=== PATIENT | male | born 1945 | race Caucasian/White ===

== ENCOUNTER 2017-03-15 21:11 | Emergency (ER) | payer OTHER ==
[~2017-03-15] VITALS: Ht 182.9 cm; Wt 87.4 kg
[2017-03-15] MEDS ORDERED: METH500T35 PO (21:50)
[2017-03-15] MEDS ORDERED: APIX5TAB PO (21:50)
[2017-03-15] MEDS ORDERED: PANT40TA3 PO (21:50)
[2017-03-15] MEDS ORDERED: METF500T4 PO (21:50)
[2017-03-15] MEDS ORDERED: ATOR80TA PO (21:50)
[2017-03-15] MEDS ORDERED: VENL150T PO (21:50)
[2017-03-15] MEDS ORDERED: NF-LISIN40 PO (21:50)
[2017-03-15] MEDS ORDERED: SPRN25T PO (21:50)
[2017-03-15] MEDS ORDERED: TRM50T PO (21:52)
[2017-03-15] MEDS ORDERED: CYAN500T44 PO (21:55)
[2017-03-15] MEDS ORDERED: CETI10CA PO (21:55)
[2017-03-15] MEDS ORDERED: FERR160T5 PO (21:55)
[2017-03-15] MEDS ORDERED: METO-274 PO (22:02)
--- NOTE | 2017-03-15 22:07 | NUR ---
On Neurological assessment patient not able to [employer] my hand d/t injury to wrist and hand from fall.
[2017-03-15 22:17] LABS: MEAN PLATELET VOLUME 9.8 FL (6.0-9.5); PLATELET COUNT 315 10^3uL (150-450); WHITE BLOOD COUNT 6.81 10^3uL (4.0-11.0)
[2017-03-15 22:19] LABS: MEAN CORPUSCULAR HEMOGLOBIN 21.7 PG (26.0-34.0); MEAN CORPUSCULAR HGB CONC 30.4 g/dL (31.0-37.0); MEAN CORPUSCULAR VOLUME 71 FL (80-100)
[2017-03-15 22:25] LABS: ALBUMIN 3.9 g/dL (3.4-5.0); ANION GAP 17.8 MEQ/L (3-15); CALCULATED IONIZED CALCIUM 3.8 mg/dL (3.8-4.6); TOTAL PROTEIN 7.3 g/dL (6.4-8.5)
[2017-03-15 22:53] LABS: BILIRUBIN,URINE Negative (Negative); CLARITY,URINE Clear; COLOR,URINE Yellow; GLUCOSE, URINE (UA) Negative (Negative); LEUKOCYTE ESTERASE ,URINE Negative (Negative)
[2017-03-15 22:55] LABS: BAND NEUTROPHILS % 0 % (0-6); EOSINOPHILS % 0 % (0-4); LYMPHOCYTES # 1.7 #; MONOCYTES # 0.1 #; MONOCYTES % 2 % (3-11); SEGMENTED NEUTROPHILS % 73 % (51-67); TOTAL CELLS COUNTED 100
[2017-03-15 22:56] LABS: ANISOCYTOSIS MODERATE; HYPOCHROMASIA MODERATE; MICROCYTOSIS MARKED; POIKILOCYTOSIS MARKED; RBC MORPH SEE REFERENCE (NORMAL)
[2017-03-15 23:05] LABS: RBC,URINE 0-2 /HPF; URINE CENTRIFUGED VOLUME 12 mL
[2017-03-15] MEDS ORDERED: ACETAMINOPHEN 500 MG TAB (TYLENOL) PO ONE (23:55)
[2017-03-15] MEDS ORDERED: HYDROmorphone 1 MG/ML (DILAUDID) SYRINGE IV ONE (23:55)
[2017-03-15] MEDS ORDERED: FUROSEMIDE 20 MG/2 ML (LASIX) VIAL IV ONE (23:55)
[2017-03-15] MEDS ORDERED: diphenhydrAMINE 50 MG/ML INJ (BENADRYL) IV ONE (23:55)
[2017-03-15] MEDS ORDERED: ONDANSETRON 2 MG/ML (Z0FRAN) 2 ML VIAL IV ONE (23:55)
[2017-03-16] MEDS ORDERED: SODIUM CHLORIDE 250 ML IV SCH (00:40)
--- NOTE | 2017-03-16 00:44 | NUR ---
Applied 2L/NC of 02 d/t sats keep dropping to 89%, then wakes patient up and goes up to 91%. Patient was givne Dilaudid IV for pain before this. at bedside, patient resp. even and non-labored, reports pain is getting better.
[2017-03-16] MEDS ORDERED: SODIUM CHLORIDE FLUSH 3 ML SYR IV ONE (00:50)
[2017-03-16] MEDS ORDERED: ACETAMINOPHEN 500 MG TAB (TYLENOL) ONE (01:22)
[2017-03-16] MEDS ORDERED: diphenhydrAMINE 50 MG/ML INJ (BENADRYL) ONE (01:22)
[2017-03-16] MEDS: SODIUM CHLORIDE FLUSH 10 ML SYR IV PRN ×2 (01:27→03:59)
--- NOTE | 2017-03-16 02:34 | NUR ---
REPORTED TO DR. REINA REGARDING DECREASIN IN PATIENT'S BLOOD PRESSURE. PATIENTT'S REPORTS IT ISN'T UNUSUAL TO SEE IN IN THE LOW 90'S SYSTOLIC. PATIENT HAS BEEN SLEEPING, AND SNORING. DR. REINA OKAY WITH CONTINUING BLOOD ADMINISTRATION. INCREASED TO 150ML/HR AT THIS TIME.
--- NOTE | 2017-03-16 03:07 | NUR ---
Patient resting quietly with eyes closed. Denies any changes in breathing or problems with transfusion. Increased to 175ml/hr
[2017-03-16] MEDS ORDERED: FUROSEMIDE 20 MG/2 ML (LASIX) VIAL ONE (03:39)
[2017-03-16] MEDS ORDERED: HYDR-3702 PO (04:37)
--- NOTE | 2017-03-16 05:00 | NUR ---
Patiet's blood pressure did increase significantly from the one's before. Patient was up voiding at the time this was taken, will cont. to monitor, no SOA noted.
--- NOTE | 2017-03-16 05:08 | NUR ---
Patient resting in bed, denies any pain or other problems, he stated, "I'm very relaxed, just chillin." at bedside, will cont. to monitor, call light in reach.
--- NOTE | 2017-03-16 05:21 | NUR ---
Increase Rate of Blood infusion to 175ml/hr. Patient resting with eyes closed, call light in reach and at bedside. BP 106/65.
--- NOTE | 2017-03-16 05:53 | NUR ---
Increased infusion to 200ml/hr. Patient tolerating very well. Resting with eyes closed, respirations are even and non-labored, VS are WNL for patient. Will cont. to monitor, call light in reach, also at bedside.
--- NOTE | 2017-03-16 06:19 | NUR ---
Unit #2 of [facility] finished infusing. Patient denies any pain or needs at this time. Lab notified infusion finished so they can come and Draw lab ordered when time.
--- NOTE | 2017-03-16 07:05 | Diagnostic Imaging Report ---
PROCEDURE: CT head without contrast. TECHNIQUE: Multiple contiguous axial images were obtained through the brain without the use of intravenous contrast. INDICATION: Fell this morning. Pain. EXAMINATION: CT brain without contrast dated 03/15/2017. FINDINGS: There is atrophy. Mild chronic ischemic changes are also noted but no acute hemorrhage or infarct is appreciated. There is no mass, mass effect or midline shift. There is no hydrocephalus. The osseous structures are intact. Mucosal thickening is seen throughout the sinuses with a large hypodensity in the right nasopharynx perhaps a retention polyp or cyst however, clinical correlation and ENT evaluation recommended. There is a small air-fluid level within the left sphenoid sinus. Mastoid air cells are clear. IMPRESSION: 1. No acute intracranial process with chronic findings as described. 2. Sinus disease as noted above with hypodensity in the right nasal passage. This is a nonspecific finding and a mass cannot be excluded. Direct visualization recommended. Findings agree with the preliminary report. Dictated by: Dictated on workstation # [id number]
[2017-03-16 07:07] VITALS: BP 123/70
--- NOTE | 2017-03-16 08:45 | Diagnostic Imaging Report ---
INDICATION: Left wrist pain. History of fracture. COMPARISON: None. FINDINGS: 5 views of the left wrist demonstrate no acute fracture or dislocation. 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 Mild degenerative changes involving the radiocarpal joint. No bony erosion is seen. IMPRESSION: 1. No acute fracture or dislocation. 2. 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 Dictated by: Dictated on workstation # [id number]
--- NOTE | 2017-03-16 10:12 | Diagnostic Imaging Report ---
INDICATION: Fell, pain and swelling, history of fracture 30 years ago. EXAMINATION: CT of the left upper extremity on 03/16/2017. COMPARISON: Correlation is made with films from 03/15/2017. FINDINGS: The radiocarpal joint space is narrowed. Multiple subchondral cysts are seen throughout the distal radius. Deformity and destructive change throughout the scaphoid are seen, likely chronic given a fracture along the distal pole with adjacent sclerosis along a nonunited appearing fracture. More proximally within the proximal pole, multiple lucencies are noted which are age indeterminate. Some of these could be new fractures. 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 The remaining osseous structures demonstrate multiple subchondral cysts throughout all carpal bones, consistent with chronic disease. No definite other acute fracture is appreciated. IMPRESSION: 1. Marked destructive change throughout the scaphoid, much of which appears chronic, with a nonunited chronic appearing fracture at the distal pole. Superimposed lucencies in the proximal pole are noted, some if which could be due to a superimposed acute fracture, correlate clinically. MRI may evaluate for edema if clinically warranted. 2. Diffuse degenerative findings throughout the remaining wrist as described. 3. This is in agreement with the preliminary [facility] report. Dictated by: Dictated on workstation # [id number]
== END 2017-03-16 07:08 | disposition home or self-care (01) ==
LOC: ED 21:17
DX: S00.03XA Contusion of scalp, initial encounter (principal); S69.82XA Other specified injuries of left wrist, hand and finger(s), initial encounter; R93.7 Abnormal findings on diagnostic imaging of other parts of musculoskeletal system; D64.9 Anemia, unspecified; W10.9XXA Fall (on) (from) unspecified stairs and steps, initial encounter; Z79.01 Long term (current) use of anticoagulants; F17.210 Nicotine dependence, cigarettes, uncomplicated
CPT/HCPCS: 29105; 36415; 36430; 70450; 73110; 73200; 80053; 81003; 81015; 85014; 85018; 85025; 85610; 85730; 86850; 86900; 86901; 86920; 96374; 96375; 99291; J1170; J1200; J1940; J2405; J7050; P9016; 99284